=== PATIENT | male | born 1990 ===

== ENCOUNTER 2018-01-06 13:37 | Emergency (ER) | payer OTHER ==
[2018-01-06] MEDS ORDERED: HYDROmorphone 2 MG/ML SDV IM ONE (15:06)
[2018-01-06] MEDS ORDERED: Ondansetron 4 MG Tab.DIS PO ONE (15:06)
[2018-01-06] MEDS ORDERED: Acetaminophen/oxyCODONE 325-5 MG Tab PO ONE ×2 (17:17→17:47)
--- NOTE | 2018-01-08 09:18 | EDM.PDOC ---
ED HPI GENERAL MEDICAL PROBLEM - General Chief Complaint: Upper Extremity Injury/Pain Stated Complaint: BROKEN ARM? 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 CAUSING PAIN AND DEFORMITY OF HIS LEFT NON DOMINANT HAND WRIST DORSUM Onset: Today Duration: Hour(s): (1/2 HOUR AGO) Location: Reports: Upper Extremity, Left Quality: Reports: Sharp Severity: Severe Improves with: Reports: None Worsens with: Reports: Movement Associated Symptoms: Reports: No Other Symptoms Left wrist Pain Score (Numeric/FACES): 5 - Related Data Allergies Allergy/AdvReac Type Severity Reaction Status Date / Time No Known Allergies Allergy Verified 01/06/18 13:57 Home Meds: Home Meds oxyCODONE HCl/Acetaminophen [Percocet 5-325 mg Tablet] 1 each PO Q6HR PRN #10 tablet 01/06/18 [Rx] Past Medical History HEENT History: Reports: Impaired Vision Other HEENT History: Patient has contacts Social & Family History - Family History Family Medical History: Noncontributory - Tobacco Use Smoking Status *Q: Current Every Day Smoker Years of Tobacco use: 9 Packs/Tins Daily: 0.3 Used Tobacco, but Quit: No - Caffeine Use Caffeine Use: Reports: None - Recreational Drug Use Recreational Drug Use: No Review of Systems - Review of Systems Review Of Systems: See Below Constitutional: Reports: No Symptoms Eyes: Reports: No Symptoms Ears: Reports: No Symptoms Nose: Reports: No Symptoms Mouth/Throat: Reports: No Symptoms Respiratory: Reports: No Symptoms Cardiovascular: Reports: No Symptoms GI/Abdominal: Reports: No Symptoms Genitourinary: Reports: No Symptoms Musculoskeletal: Reports: No Symptoms, Joint Pain Skin: Reports: No Symptoms Neurological: Reports: No Symptoms Psychiatric: Reports: No Symptoms ED EXAM, GENERAL - Physical Exam Exam: See Below Free Text/Narrative:: MARKED LEFT DORSAL RADIO CARPAL SWELLING AND PAIN WITH ANY MOVEMENT Exam Limited By: No Limitations General Appearance: Alert, Moderate Distress Eye Exam: Bilateral Eye: Normal Inspection Ears: Normal External Exam Nose: Normal Inspection Throat/Mouth: Normal Inspection Head: Atraumatic Neck: Normal Inspection Respiratory/Chest: No Respiratory Distress Cardiovascular: Normal Peripheral Pulses, Regular Rate, Rhythm, No Edema, No Gallop, No JVD, No Murmur, No Rub Peripheral Pulses: 1+: Radial (L), Radial (R) GI/Abdominal: Normal Bowel Sounds Extremities: Other (DEFORMIT LEFT WRIST DORSUM) Neurological: Alert, Oriented, CN II-XII Intact, Normal Cognition, Normal Gait, Normal Reflexes, No Motor/Sensory Deficits Psychiatric: Normal Affect Skin Exam: Warm, Dry Lymphatic: No Adenopathy ED TRAUMA EXTREMITY PROCEDURES - Joint Reduction Sedation: Hematoma/Fracture Block Local Anesthesia - Lidocaine (Xylocaine): 1% with EPI Pre-Procedure NV Status: Normal Post-Procedure NV Status: Normal Technique: Traction/Counter Traction, Other (CLOSE REDUCTION ) Number of Attempts: 1 Post-Reduction Imaging: Completely Reduced Course - Vital Signs Last Recorded V/S: Last Vital Signs Temp 36.9 C 01/06/18 17:50 Pulse 86 01/06/18 17:50 Resp 16 01/06/18 17:50 BP 132/83 01/06/18 17:50 Pulse Ox 98 01/06/18 17:50 - Orders/Labs/Meds Meds: Medications Discontinued Medications Generic Name Dose Route Start Last Admin Trade Name Corneliusq PRN Reason Stop Dose Admin Hydromorphone HCl 1 mg 01/06/18 15:06 01/06/18 15:12 Dilaudid IM 01/06/18 15:07 1 mg ONETIME ONE Administration Ondansetron HCl 4 mg 01/06/18 15:06 01/06/18 15:12 Zofran Odt PO 01/06/18 15:07 4 mg ONETIME ONE Administration Oxycodone/Acetaminophen 1 tab 01/06/18 17:17 01/06/18 17:20 Percocet 325-5 Mg PO 01/06/18 17:18 1 tab ONETIME ONE Administration - Re-Assessments/Exams Free Text/Narrative Re-Assessment/Exam: POST REDUCTION CIRCULATION SENSATION INTACT Departure - Departure Time of Disposition: 15:45 Disposition: Home, Self-Care 01 Clinical Impression: Colles' fracture of left radius Qualifiers: Encounter type: initial encounter Fracture type: closed Qualified Code(s): S52.532A - Colles' fracture of left radius, initial encounter for closed fracture - Discharge Information *PRESCRIPTION DRUG MONITORING PROGRAM REVIEWED*: No *COPY OF PRESCRIPTION DRUG MONITORING REPORT IN PATIENT MARGARET: No Prescriptions: oxyCODONE HCl/Acetaminophen [Percocet 5-325 mg Tablet] 1 each PO Q6HR PRN #10 tablet PRN Reason: Pain Instructions: Closed Reduction for Wrist or Forearm, Care After Referrals: PCP,Unknown [Ordering Only Provider] - Forms: ED Department Discharge Additional Instructions: ELEVATE YOUR HAND ABOVE YOUR HEART SEE MD THIS WEEK ICE SLING TO KEEP HAND ABOVE HEART MAY USE RIGHT HAND AT WORK BUT NOT THE LEFT PERCOCET FOR BREAKTHROUGH PAIN NOT RELIEVED BY 1000 MG TYLENOL TAKE TOGETHER WITH 600 MG IBUPROFEN EVERY 6HOURS
--- NOTE | 2018-01-08 11:33 | CR ---
INDICATION: Post reduction. LEFT FOREARM: Frontal and lateral views of the left forearm were obtained and revealed what appears to be an old unhealed fracture of the ulnar styloid versus ununited accessory ossification center with the comminuted fracture fragments of the distal radial metaphysis in good position and alignment. EUNICE
--- NOTE | 2018-01-08 11:33 | CR ---
INDICATION: Hit with a wrench, the wrench slipped and patient fell to floor. LEFT WRIST: Three views of the left wrist revealed a severely comminuted and severely angulated, mostly transverse fracture through the distal radial metaphysis. Severe dorsal angulation of the radial joint surface is noted. Offset posteriorly of the distal radial fracture fragment is noted. The adjacent ulna appears to be grossly intact, although there may be some separation at the radioulnar junction. IMPRESSION: Distal radial anteriorly angulated fracture with marked dorsal angulation of the radial joint surface and posterior offset of distal comminuted radial fracture fragments. MTDD
== END 2018-01-06 17:53 | disposition home or self-care (01) ==
LOC: FB.ED 13:37
DX: S52.612A Displaced fracture of left ulna styloid process, initial encounter for closed fracture (principal); S52.502A Unspecified fracture of the lower end of left radius, initial encounter for closed fracture; W22.8XXA Striking against or struck by other objects, initial encounter; Y93.89 Activity, other specified; F17.210 Nicotine dependence, cigarettes, uncomplicated
CPT/HCPCS: 25605; 73090-LT; 73100-LT; 96372; 99000; 99283; A9270-GY; J1170